=== PATIENT | female | born 1930 | race Caucasian/White ===

== ENCOUNTER 2019-01-29 03:27 | Inpatient (IN) | payer OTHER ==
[~2019-01-29] VITALS: Ht 152.4 cm; Wt 66.2 kg
[2019-01-29 03:32] VITALS: Ht 152.4 cm; Wt 66.2 kg
[2019-01-29 03:56] LABS: RED CELL DISTRIBUTION WIDTH 13.8 % (11.5-14.5)
[2019-01-29 04:01] LABS: CALCIUM 8.7 mg/dL (8.5-10.1); CARBON DIOXIDE 22.6 mmol/L (21-32); CHLORIDE SERUM 110 mmol/L (98-107); GLUCOSE SERUM 230 mg/dL (74-106); POTASSIUM SERUM 3.5 mmol/L (3.5-5.1); SODIUM SERUM 144 mmol/L (136-145)
[2019-01-29 04:02] LABS: BASOPHIL % 1.3 % (0-2); PLATELET COUNT 219 x10^3mcL (130-400)
[2019-01-29 04:06] LABS: ALKALINE PHOSPHATASE 77 U/L (46-116); ALT/SGPT 29 U/L (14-59); AST/SGOT 35 U/L (15-37); BILIRUBIN TOTAL 0.71 mg/dL (0.20-1.00); TOTAL PROTEIN, SERUM 6.6 g/dL (6.4-8.2)
[2019-01-29 04:07] LABS: ALBUMIN 3.2 g/dL (3.4-5.0)
[2019-01-29] MEDS ORDERED: LOSARTAN POTAS100 M1 (05:38)
[2019-01-29] MEDS ORDERED: LEVOTHYROXIN0.125 M2 (05:38)
[2019-01-29] MEDS ORDERED: CLOPIDOGREL75 M1 (05:38)
[2019-01-29] MEDS ORDERED: TOPROL XL25 MG (05:38)
[2019-01-29] MEDS ORDERED: FAMOTIDINE40 MG (05:39)
[2019-01-29] MEDS ORDERED: ISOSORBIDE MONO30 MG (05:39)
[2019-01-29 07:02] LABS: MAGNESIUM 2.1 mg/dL (1.8-2.4); PHOSPHOROUS 5.8 mg/dL (2.5-4.9)
[2019-01-29 07:13] LABS: CHOLESTEROL/HDL RATIO 2.6
[2019-01-29 07:56] VITALS: BP 152/60
[2019-01-29 08:00] LABS: microscopic required? NO
[2019-01-29 08:13] LABS: urine erythrocyte NEGATIVE (NEGATIVE)
[2019-01-29 08:28] LABS: AMPHETAMINE QUAL UR NONE DETECTED (See below)
[2019-01-29 10:09] VITALS: BP 159/58
[2019-01-29 13:01] VITALS: BP 165/65
[2019-01-29 14:56] VITALS: BP 141/95
[2019-01-29 16:03] VITALS: BP 116/52
[2019-01-29 20:45] VITALS: BP 139/52
[2019-01-30 06:16] LABS: BASOPHIL % 0.5 % (0-2); PLATELET COUNT 175 x10^3mcL (130-400); RED CELL DISTRIBUTION WIDTH 14.5 % (11.5-14.5)
[2019-01-30 06:20] LABS: CALCIUM 8.6 mg/dL (8.5-10.1); CARBON DIOXIDE 25.3 mmol/L (21-32); CHLORIDE SERUM 112 mmol/L (98-107); CREATININE SERUM 1.1 mg/dL (0.6-1.0); GLUCOSE SERUM 114 mg/dL (74-106); PHOSPHOROUS 3.5 mg/dL (2.5-4.9); POTASSIUM SERUM 4.5 mmol/L (3.5-5.1); SODIUM SERUM 144 mmol/L (136-145)
[2019-01-30 06:28] VITALS: BP 130/54
[2019-01-30 09:00] VITALS: BP 139/57
[2019-01-30 14:03] VITALS: BP 133/53
[2019-01-30 16:57] VITALS: BP 119/44
[2019-01-30 21:04] VITALS: BP 136/52
[2019-01-31 05:27] VITALS: BP 151/66
[2019-01-31 09:20] VITALS: BP 120/48
[2019-01-31 13:10] VITALS: BP 111/52
[2019-01-31 17:00] VITALS: BP 124/43
[2019-01-31 21:11] VITALS: BP 155/62
[2019-02-01 05:41] VITALS: BP 135/52
[2019-02-01 06:54] LABS: BASOPHIL % 0.6 % (0-2); PLATELET COUNT 176 x10^3mcL (130-400)
[2019-02-01 07:00] LABS: RED CELL DISTRIBUTION WIDTH 14.8 % (11.5-14.5)
[2019-02-01 07:19] LABS: CALCIUM 8.6 mg/dL (8.5-10.1); CARBON DIOXIDE 30.7 mmol/L (21-32); CHLORIDE SERUM 109 mmol/L (98-107); GLUCOSE SERUM 90 mg/dL (74-106); PHOSPHOROUS 4.4 mg/dL (2.5-4.9); POTASSIUM SERUM 4.2 mmol/L (3.5-5.1); SODIUM SERUM 144 mmol/L (136-145)
[2019-02-01 08:30] VITALS: BP 117/40
[2019-02-01] MEDS ORDERED: L40 PO (11:32)
[2019-02-01 11:44] VITALS: BP 117/40
[2019-02-01] MEDS ORDERED: AUGMENTIN 875-1 EACH PO (11:45)
[2019-02-01] MEDS ORDERED: CLE150 PO (13:48)
== END 2019-02-01 16:36 | disposition home or self-care (01) | DRG 871 ==
LOC: ED 03:27 → DU 06:10
PROVIDERS: Emergency Medicine; Internal Medicine; ADMIT General Practice
DX: A41.9 Sepsis, unspecified organism (principal); N17.0 Acute kidney failure with tubular necrosis; J69.0 Pneumonitis due to inhalation of food and vomit; J96.01 Acute respiratory failure with hypoxia; I50.43 Acute on chronic combined systolic (congestive) and diastolic (congestive) heart failure; I11.0 Hypertensive heart disease with heart failure; E03.9 Hypothyroidism, unspecified; E83.39 Other disorders of phosphorus metabolism; I25.10 Atherosclerotic heart disease of native coronary artery without angina pectoris; Z86.73 Personal history of transient ischemic attack (TIA), and cerebral infarction without residual deficits
CPT/HCPCS: 36600; 83880; 94150; 97112-GP; 97116-GP; J0696; J1940; J1956; J3490; J7030; J7613; J7620; J7644; Q0092

== ENCOUNTER 2019-04-16 04:51 | Inpatient (IN) | payer OTHER ==
[~2019-04-16] VITALS: Ht 165.1 cm; Wt 71.0 kg
[2019-04-16] VITALS (13 sets, daily range): BP systolic 88–130; BP diastolic 31–73
[~2019-04-16 04:51] MED LIST: AUGMENTIN 875-1 EACH PO; CLE150 PO; CLOPIDOGREL75 M1; FAMOTIDINE40 MG; ISOSORBIDE MONO30 MG; L40 PO; LEVOTHYROXIN0.125 M2; LOSARTAN POTAS100 M1; TOPROL XL25 MG
[2019-04-16] MEDS ORDERED: ISOSORBIDE MONO30 MG PO (04:57)
[2019-04-16] MEDS ORDERED: FUROSEMIDE20 MG PO (04:57)
[2019-04-16] MEDS ORDERED: METOPROLOL SUC100 M2 PO (04:59)
[2019-04-16] MEDS ORDERED: ELIQUIS5 MG PO (04:59)
[2019-04-16 07:12] LABS: PLATELET COUNT 457 x10^3mcL (130-400); RED CELL DISTRIBUTION WIDTH 15.5 % (11.5-14.5)
[2019-04-16 07:29] LABS: CARBON DIOXIDE 22.6 mmol/L (21-32); CHLORIDE SERUM 109 mmol/L (98-107); CREATININE SERUM 1.2 mg/dL (0.6-1.0); GLUCOSE SERUM 201 mg/dL (74-106); POTASSIUM SERUM 3.5 mmol/L (3.5-5.1); SODIUM SERUM 145 mmol/L (136-145)
[2019-04-16 07:32] LABS: ALKALINE PHOSPHATASE 110 U/L (46-116); ALT/SGPT 80 U/L (14-59); AST/SGOT 80 U/L (15-37); BILIRUBIN TOTAL 0.36 mg/dL (0.20-1.00); MAGNESIUM 2.3 mg/dL (1.8-2.4); PHOSPHOROUS 5.6 mg/dL (2.5-4.9)
[2019-04-16 07:50] LABS: UA SPECIFIC GRAVITY 1.015 (1.005-1.035); microscopic required? YES; urine erythrocyte TRACE (NEGATIVE)
[2019-04-16 09:37] LABS: BAND NEUTROPHIL 5 % (0-10); BASOPHIL 0 % (0-2); MONOCYTE 1 % (0-7); PLATELET MORPHOLOGY LARGE PLATELET SEEN; SEGMENTED NEUTROPHILS 89 % (37-75); rbc morphology (normal/abnorm) NORMAL (NORMAL)
[2019-04-16 11:53] LABS: AMPHETAMINE QUAL UR NONE DETECTED (See below)
[2019-04-17] VITALS (16 sets, daily range): BP systolic 87–133; BP diastolic 38–58
[2019-04-17 05:31] LABS: BASOPHIL % 0.3 % (0-2); PLATELET COUNT 318 x10^3mcL (130-400); RED CELL DISTRIBUTION WIDTH 15.3 % (11.5-14.5)
[2019-04-17 05:40] LABS: CALCIUM 8.1 mg/dL (8.5-10.1); CARBON DIOXIDE 22.5 mmol/L (21-32); CHLORIDE SERUM 114 mmol/L (98-107); CREATININE SERUM 0.9 mg/dL (0.6-1.0); GLUCOSE SERUM 113 mg/dL (74-106); POTASSIUM SERUM 3.3 mmol/L (3.5-5.1); SODIUM SERUM 145 mmol/L (136-145)
[2019-04-18] VITALS (17 sets, daily range): BP systolic 97–154; BP diastolic 44–70
[2019-04-18 05:40] LABS: CALCIUM 8.4 mg/dL (8.5-10.1); CARBON DIOXIDE 22.9 mmol/L (21-32); CHLORIDE SERUM 114 mmol/L (98-107); CREATININE SERUM 0.9 mg/dL (0.6-1.0); GLUCOSE SERUM 114 mg/dL (74-106); MAGNESIUM 1.9 mg/dL (1.8-2.4); POTASSIUM SERUM 3.9 mmol/L (3.5-5.1); SODIUM SERUM 147 mmol/L (136-145)
[2019-04-18 05:41] LABS: PLATELET COUNT 267 x10^3mcL (130-400)
[2019-04-18 05:45] LABS: RED CELL DISTRIBUTION WIDTH 14.8 % (11.5-14.5)
[2019-04-19] VITALS (14 sets, daily range): BP systolic 92–137; BP diastolic 34–69; Ht 165.1 cm; Wt 71.0 kg
[2019-04-19 05:58] LABS: BASOPHIL % 0.3 % (0-2); PLATELET COUNT 257 x10^3mcL (130-400)
[2019-04-19 06:01] LABS: CALCIUM 8.1 mg/dL (8.5-10.1); CARBON DIOXIDE 28.3 mmol/L (21-32); CHLORIDE SERUM 110 mmol/L (98-107); CREATININE SERUM 0.9 mg/dL (0.6-1.0); GLUCOSE SERUM 88 mg/dL (74-106); POTASSIUM SERUM 3.6 mmol/L (3.5-5.1); SODIUM SERUM 143 mmol/L (136-145)
[2019-04-19 06:05] LABS: RED CELL DISTRIBUTION WIDTH 15.8 % (11.5-14.5)
[2019-04-20 03:15] VITALS: BP 122/59
[2019-04-20 06:02] LABS: BASOPHIL % 0.2 % (0-2); PLATELET COUNT 244 x10^3mcL (130-400)
[2019-04-20 06:03] LABS: RED CELL DISTRIBUTION WIDTH 15.5 % (11.5-14.5)
[2019-04-20 06:13] LABS: CALCIUM 8.7 mg/dL (8.5-10.1); CARBON DIOXIDE 24.3 mmol/L (21-32); CHLORIDE SERUM 109 mmol/L (98-107); CREATININE SERUM 0.8 mg/dL (0.6-1.0); GLUCOSE SERUM 106 mg/dL (74-106); POTASSIUM SERUM 3.5 mmol/L (3.5-5.1); SODIUM SERUM 144 mmol/L (136-145)
[2019-04-20 08:00] VITALS: BP 133/84
[2019-04-20 12:00] VITALS: BP 133/63
[2019-04-20 13:50] VITALS: BP 152/55
[2019-04-20 17:54] VITALS: BP 155/58
[2019-04-20 21:42] VITALS: BP 137/50
[2019-04-21 06:19] VITALS: BP 153/56
[2019-04-21 06:51] LABS: BASOPHIL % 0.1 % (0-2); PLATELET COUNT 270 x10^3mcL (130-400); RED CELL DISTRIBUTION WIDTH 15.7 % (11.5-14.5)
[2019-04-21 06:58] LABS: CALCIUM 9.5 mg/dL (8.5-10.1); CARBON DIOXIDE 27.3 mmol/L (21-32); CHLORIDE SERUM 110 mmol/L (98-107); CREATININE SERUM 0.8 mg/dL (0.6-1.0); GLUCOSE SERUM 103 mg/dL (74-106); POTASSIUM SERUM 3.3 mmol/L (3.5-5.1); SODIUM SERUM 146 mmol/L (136-145)
[2019-04-21 09:30] VITALS: BP 154/52
[2019-04-21 12:33] VITALS: BP 161/60
[2019-04-21 13:38] VITALS: BP 147/52
[2019-04-21 18:41] VITALS: BP 136/57
[2019-04-21 21:06] VITALS: BP 157/55
[2019-04-22 04:07] VITALS: BP 168/51
[2019-04-22 07:29] LABS: CALCIUM 8.9 mg/dL (8.5-10.1); CARBON DIOXIDE 27.6 mmol/L (21-32); CHLORIDE SERUM 107 mmol/L (98-107); CREATININE SERUM 0.9 mg/dL (0.6-1.0); GLUCOSE SERUM 88 mg/dL (74-106); POTASSIUM SERUM 3.2 mmol/L (3.5-5.1); SODIUM SERUM 141 mmol/L (136-145)
[2019-04-22 07:33] LABS: BASOPHIL % 0.6 % (0-2); PLATELET COUNT 262 x10^3mcL (130-400)
[2019-04-22 07:36] LABS: RED CELL DISTRIBUTION WIDTH 15.4 % (11.5-14.5)
[2019-04-22 08:14] VITALS: BP 168/51
[2019-04-22 09:17] VITALS: BP 158/64
[2019-04-22 13:36] VITALS: BP 133/73
[2019-04-22 17:41] VITALS: BP 144/76
[2019-04-22 21:33] VITALS: BP 144/67
[2019-04-23 06:17] VITALS: BP 159/54
[2019-04-23 06:31] LABS: BASOPHIL % 0.7 % (0-2); PLATELET COUNT 252 x10^3mcL (130-400)
[2019-04-23 06:38] LABS: RED CELL DISTRIBUTION WIDTH 14.6 % (11.5-14.5)
[2019-04-23 06:45] LABS: CALCIUM 9.1 mg/dL (8.5-10.1); CARBON DIOXIDE 26.7 mmol/L (21-32); CHLORIDE SERUM 107 mmol/L (98-107); GLUCOSE SERUM 87 mg/dL (74-106); POTASSIUM SERUM 3.9 mmol/L (3.5-5.1); SODIUM SERUM 144 mmol/L (136-145)
[2019-04-23 09:16] VITALS: BP 133/44
[2019-04-23 12:19] VITALS: BP 138/55
[2019-04-23 17:53] VITALS: BP 144/62
[2019-04-23 21:00] VITALS: BP 130/63
[2019-04-24 05:51] VITALS: BP 141/52
[2019-04-24 07:04] LABS: BASOPHIL % 0.4 % (0-2); PLATELET COUNT 252 x10^3mcL (130-400)
[2019-04-24 07:13] LABS: CALCIUM 9.3 mg/dL (8.5-10.1); CARBON DIOXIDE 26.4 mmol/L (21-32); CHLORIDE SERUM 106 mmol/L (98-107); GLUCOSE SERUM 85 mg/dL (74-106); POTASSIUM SERUM 3.4 mmol/L (3.5-5.1); SODIUM SERUM 143 mmol/L (136-145)
[2019-04-24 07:21] LABS: RED CELL DISTRIBUTION WIDTH 15.8 % (11.5-14.5)
[2019-04-24 08:19] VITALS: BP 135/52
[2019-04-24] MEDS ORDERED: LEVAQUIN750 MG PO (10:47)
[2019-04-24 11:01] VITALS: BP 135/52
[2019-04-24 11:48] VITALS: BP 107/59
== END 2019-04-24 13:35 | disposition home or self-care (01) | DRG 871 ==
LOC: ED 04:51 → DU 06:11 → IC 06:11 → DU 04-20 13:50
PROVIDERS: Emergency Medicine; Family Medicine; ADMIT Internal Medicine
PROC: 5A1945Z Respiratory Ventilation, 24-96 Consecutive Hours (ICD-10-PCS; principal; 2019-04-16)
PROC: 0BH18EZ Insertion of Endotracheal Airway into Trachea, Via Natural or Artificial Opening Endoscopic (ICD-10-PCS; 2019-04-16)
PROC: 05HM33Z Insertion of Infusion Device into Right Internal Jugular Vein, Percutaneous Approach (ICD-10-PCS; 2019-04-16)
PROC: B543ZZA Ultrasonography of Right Jugular Veins, Guidance (ICD-10-PCS; 2019-04-16)
PROC: 0B978ZZ Drainage of Left Main Bronchus, Via Natural or Artificial Opening Endoscopic (ICD-10-PCS; 2019-04-19)
PROC: 0B918ZZ Drainage of Trachea, Via Natural or Artificial Opening Endoscopic (ICD-10-PCS; 2019-04-19)
PROC: 0B938ZZ Drainage of Right Main Bronchus, Via Natural or Artificial Opening Endoscopic (ICD-10-PCS; 2019-04-19)
DX: A41.9 Sepsis, unspecified organism (principal); R65.21 Severe sepsis with septic shock; J69.0 Pneumonitis due to inhalation of food and vomit; J96.01 Acute respiratory failure with hypoxia; I50.33 Acute on chronic diastolic (congestive) heart failure; N39.0 Urinary tract infection, site not specified; I11.0 Hypertensive heart disease with heart failure; I35.0 Nonrheumatic aortic (valve) stenosis; I25.10 Atherosclerotic heart disease of native coronary artery without angina pectoris; I48.0 Paroxysmal atrial fibrillation; E03.9 Hypothyroidism, unspecified; Z68.22 Body mass index [BMI] 22.0-22.9, adult; Z86.73 Personal history of transient ischemic attack (TIA), and cerebral infarction without residual deficits
CPT/HCPCS: 31645; 36600; 83880; 97110-GP; 97116-GP; 97530-GP; A4628; J0330; J0360; J1265; J1940; J1956; J2250; J2405; J2704; J3010; J3480; J3490; J7030; J7040; J7050; J7620; Q0092

== ENCOUNTER 2019-08-05 02:57 | Emergency (ER) | payer OTHER ==
[~2019-08-05] VITALS: Ht 152.4 cm; Wt 60.8 kg
[~2019-08-05 02:57] MED LIST changes: +ELIQUIS5 MG PO; +FUROSEMIDE20 MG PO; +ISOSORBIDE MONO30 MG PO; +LEVAQUIN750 MG PO; +METOPROLOL SUC100 M2 PO
[2019-08-05 03:06] VITALS: Ht 152.4 cm; Wt 60.8 kg
[2019-08-05 04:12] LABS: BASOPHIL % 0.9 % (0-2); PLATELET COUNT 200 x10^3mcL (130-400)
[2019-08-05 04:20] LABS: RED CELL DISTRIBUTION WIDTH 14.8 % (11.5-14.5)
[2019-08-05 04:42] LABS: CARBON DIOXIDE 28.4 mmol/L (21-32); CHLORIDE SERUM 101 mmol/L (98-107); GLUCOSE SERUM 96 mg/dL (74-106); POTASSIUM SERUM 3.9 mmol/L (3.5-5.1); SODIUM SERUM 137 mmol/L (136-145)
[2019-08-05 04:46] LABS: ALBUMIN 3.1 g/dL (3.4-5.0); ALKALINE PHOSPHATASE 75 U/L (46-116); ALT/SGPT 19 U/L (14-59); AST/SGOT 20 U/L (15-37); TOTAL PROTEIN, SERUM 5.9 g/dL (6.4-8.2)
[2019-08-05 06:25] VITALS: BP 129/50
== END 2019-08-05 06:25 | disposition home or self-care (01) ==
LOC: ED 02:57
PROVIDERS: Emergency Medicine
DX: F41.9 Anxiety disorder, unspecified (principal); K21.9 Gastro-esophageal reflux disease without esophagitis; E03.9 Hypothyroidism, unspecified; I10 Essential (primary) hypertension; I48.91 Unspecified atrial fibrillation; Z88.0 Allergy status to penicillin; Z88.6 Allergy status to analgesic agent
CPT/HCPCS: 36415; 83880